=== PATIENT | female | born 1950 | race Caucasian/White ===

== ENCOUNTER → 2025-05-04 | Outpatient (CLI) | payer OTHER, MEDICARE, SELFPAY ==
--- NOTE | 2025-05-04 07:30 | XR_ITS ---
Examination: MRI thoracic spine without contrast. Date and time of exam: May 04, 2025 0714 hours INDICATIONS: Intermittent back pain post injury 2017, MRI thoracic spine April 02, 2019 thoracic syrinx cavity Technique: Multiple sagittal and axial images of the thoracic spine have been obtained. T1 weighted localizer, sagittal T2 weighted images, TR 30-50, TE 148, T1 weighted sagittal images, TR 650, TE 14, T2-weighted transverse images, TR 6770, TE 142 Findings: Adequate alignment thoracic vertebral bodies on the lateral view Mild chronic osteoporotic compressions T11-T12 with minimal posterior osteophyte formation No focal disc protrusion impinging upon the thoracic cord Syrinx cavity in the thoracic cord, sagittal image 8 AP dimension 4 mm, at the T5-T6 level measuring at least 27 mm in cephalocaudad dimension Impression: Positive for syrinx cavity as above
== END | disposition home or self-care (01) ==
PROVIDERS: PCP Physician Assistant; Referring Provider Physician Assistant; Visit Provider Physician Assistant
DX: G96.00 Cerebrospinal fluid leak, unspecified (principal)
CPT/HCPCS: 72146

== ENCOUNTER → 2025-05-13 | Outpatient (CLI) | payer OTHER, MEDICARE, SELFPAY ==
[2025-05-13 11:12] LABS: Collection Type, Urine Clean Catch
[2025-05-13 11:52] LABS: Basophils # (Auto) 0.1 Thou/mm3 (0.0-0.2); Basophils % (Auto) 1 % (0-2.5); Eosinophils # (Auto) 0.2 Thou/mm3 (0.0-0.5); Eosinophils % (Auto) 2 % (0-10); Hematocrit 43.8 % (36.0-46.0); Hemoglobin 13.9 g/dL (12.0-16.0); Immature Granulocytes Auto 0.06 Thou/mm3 (0.00-0.00); Lymphocytes # (Auto) 2.5 Thou/mm3 (1.0-4.8); Lymphocytes % (Auto) 27 % (10-50); Mean Corpuscular HGB Conc 31.7 g/dl (31.0-37.0); Mean Corpuscular Hemoglobin 28.6 pg (25.0-35.0); Mean Corpuscular Volume 90 fL (80-100); Monocytes # (Auto) 1.0 Thou/mm3 (0.0-0.8); Monocytes % (Auto) 10 % (0-12); Neutrophils # (Auto) 5.6 Thou/mm3 (1.8-7.7); Neutrophils % (Auto) 60 % (37-80); Nucleated Red Blood Cell # 0.00 Thou/mm3 (0.00-0.00); Nucleated Red Blood Cell % 0 /100 WBC (0); Platelet Count 355 Thou/mm3 (140-440); RDW Standard Deviation 40.9 fL (36.4-46.3); Red Blood Count 4.86 Miln/mm3 (4.00-5.20); White Blood Count 9.4 Thou/mm3 (3.6-11.0)
[2025-05-13 12:02] LABS: Vitamin B12 423 pg/mL (211-911); Vitamin D 25 Hydroxy Total 25.8 ng/mL (7.3-40.2)
[2025-05-13 12:10] LABS: Alanine Aminotransferase 28 U/L (10-49); Albumin, Serum 4.0 gm/dL (3.4-4.8); Albumin/Globulin Ratio 1.7 (1.2-2.2); Alkaline Phosphatase 84 U/L (46-116); Anion Gap 7 (7-16); Aspartate Amino Transferase 22 U/L (0-34); BUN/Creatinine Ratio 14 Ratio (12-20); Bilirubin,Total 1.2 mg/dL (0.3-1.2); Blood Urea Nitrogen 13 mg/dL (9-23); Calcium 9.4 mg/dL (8.3-10.6); Calcium (Corrected) 9.4 mg/dL (8.5-10.1); Carbon Dioxide 26.1 mMol/L (20.0-31.0); Cardiac Risk Estimate 5.0 RATIO (3.7-5.6); Chloride 107 mMol/L (98-107); Cholesterol 236 mg/dL (132-200); Creatinine (Component) 0.9 mg/dL (0.6-1.3); Globulin 2.3 gm/dL (2.3-3.5); Glucose 104 mg/dL (74-106); HDL Cholesterol 47 mg/dL (40-60); LDL Cholesterol,Calculated 167 mg/dL (0-130); Osmolality,Calculated 279 (275-295); Potassium 4.9 mMol/L (3.4-5.1); Sodium 140 mMol/L (136-145); Thyroid Stimulating Hormone 0.72 uIU/mL (0.55-4.78); Total Protein 6.3 gm/dL (5.7-8.2); Triglycerides 112 mg/dL (30-150); eGFR > 60 See Note
[2025-05-13 12:18] LABS: Bilirubin,Urine Negative (Negative); Blood,Urine Negative (Negative); Clarity,Urine Clear (Clear/Hazy); Color,Urine Lt-Yellow (Lt Yel-Yel); Culture Indicated,Urine Not Indicated; Glucose, Urine Negative (Negative); Ketones,Urine Negative (Negative); Leukocyte Esterase,Urine Positive (Negative); Nitrite,Urine Negative (Negative); PH,Urine 7.0 (5.0-7.0); Protein,Urine Negative (Neg - Trace); RBC,Urine 2 /hpf (0-3); Specific Gravity,Urine 1.020 (1.001-1.035); Squamous Epithelial Cell,Urine < 1 /hpf (0-5); Urobilinogen,Urine Negative mg/dL (0.0-1.0); WBC,Urine 3 /hpf (0-5)
[2025-05-13 12:23] LABS: Parathyroid Hormone Intact 129.0 pg/ml (18.5-88.0)
[2025-05-21 06:18] LABS: Prolactin* 7.3 ng/mL
== END | disposition home or self-care (01) ==
LOC: COPL 10:11
PROVIDERS: PCP Family Medicine; Referring Provider Physician Assistant; Visit Provider Physician Assistant
DX: Z00.00 Encounter for general adult medical examination without abnormal findings (principal); E78.5 Hyperlipidemia, unspecified; E55.9 Vitamin D deficiency, unspecified; E21.3 Hyperparathyroidism, unspecified; E22.1 Hyperprolactinemia
CPT/HCPCS: 36415; 80053; 80061; 81001; 82306; 82607; 83970; 84146; 84443; 85025

== ENCOUNTER → 2025-05-27 | Outpatient (CLI) | payer BC, MEDICARE, OTHER, SELFPAY ==
--- NOTE | 2025-05-27 16:00 | XR_ITS ---
Examination: Thyroid sonography complete TECHNIQUE: Grayscale sonographic images thyroid lobes Date and time: May 27, 2025 1558 hours Comparison May 11, 2023 INDICATIONS: Thyroid sonogram May 11, 2023 17 mm nodule posterior to the lower right thyroid lobe, FINDINGS: Right thyroid 5.9 cm Upper pole cyst 3 x 3 mm Lower pole nodule 4 x 4 millimeter Nodule below the right lobe of the thyroid 13 x 8 x 11 mm Left thyroid 4.5 cm Upper pole cyst 3 x 3 mm Midpole nodule 4 x 5 mm IMPRESSION: Small thyroid nodules as above 13 x 8 x 11 mm nodule separate and below the right lobe of the thyroid, consider parathyroid adenoma Consider parathyroid sestamibi nuclear medicine scan follow-up
== END | disposition home or self-care (01) ==
PROVIDERS: PCP Physician Assistant; Referring Provider Physician Assistant; Visit Provider Physician Assistant
DX: E04.2 Nontoxic multinodular goiter (principal)
CPT/HCPCS: 76536

== ENCOUNTER → 2025-06-12 | Outpatient (CLI) | payer BC, MEDICARE, OTHER, SELFPAY ==
--- NOTE | 2025-06-12 14:15 | XR_ITS ---
Examination: Bone densitometry Date and time of exam:June 12, 2025 1449 hours INDICATIONS: Menopause age 56 calcium and vitamin D 3 years, lower back fracture postmenopausal, personal history osteopenia Technique: Lumbar spine and hip total bone mineralization values of an calculated. Peak reference and age match control results have been displayed. Findings: Lumbar spine total bone mineralization is0.902 gm/cm2. This is 1.3 standard deviations below peak reference. This is 1.0 standard deviations above age-matched controls. Hip total bone mineralization is 0.861 gm/cm2 This is 0.7 standard deviations below peak reference. This is 1.0 standard deviations above age-matched controls Impression: There is osteopenia based on lumbar spine measurements. There is osteopenia based on hip measurements Lumbar mineralization is increase 11.6% compared with December 23, 2020. Hip mineralization is decreased 1.4% compared with December 23, 2020.
== END | disposition home or self-care (01) ==
LOC: CDIM 14:16
PROVIDERS: Referring Provider Physician Assistant; Visit Provider Physician Assistant
DX: M85.89 Other specified disorders of bone density and structure, multiple sites (principal)
CPT/HCPCS: 77080

== ENCOUNTER 2025-07-06 12:14 | Inpatient (IN) | payer BC, MEDICARE, OTHER, SELFPAY ==
[2025-07-06 12:15] VITALS: BMI 29.1
[2025-07-06 12:36] VITALS: BP 128/78; PULSE 65; RESP 18; TEMP 36.6; O2SAT 98
--- NOTE | 2025-07-06 12:43 | XR_ITS ---
Examination: CT abdomen with intravenous contrast CT pelvis with intravenous contrast 2-D coronal reconstructions 2-D sagittal reconstructions Date and time of exam:July 06, 2025 1510 hours INDICATIONS: Left-sided flank pain beginning 2 days ago, history on 06/27/2021 exam 4 mm right renal angiomyolipoma, 15 mm hypodense mass lower pole right kidney 4 mm lower pole left renal calculus, 14 mm splenic artery aneurysm. CTDI: vol (mGy) 24.1 DLP: (mGycm) 918 Technique: Multiple axial sections of the abdomen and pelvis have been obtained. 64 slice high-resolution scanner used. 3 mm axial sections have been obtained, post intravenous injection 60 cc [id number] 2-D sagittal, coronal reconstructions obtained. Low dose protocols were performed. One or more of the following dose reduction techniques were used; automated exposure control, adjustment of the mA and/or KV according to patient size, use of iterative reconstruction technique. Findings: Mild enlargement cardiac contour No focal liver or splenic lesions Absent gallbladder 12 mm splenic artery aneurysm No adrenal mass 7 mm posterior right renal angiomyolipoma Minimal left hydronephrosis, 3 mm proximal left ureteral calculus image 129 22 mm lower pole right renal cyst Aorta normal size No pericecal inflammatory change No bowel obstruction No diverticulitis Anteverted uterus with uterine fundal 19 mm mass Intact contracted urinary bladder Severe osteopenia with chronic osteoporotic compressions L3, L1, T12 Moderate narrowing hip joints IMPRESSION: 12 mm splenic artery aneurysm 7 mm right renal angiomyolipoma Minimal left hydronephrosis secondary to 3 mm proximal left ureteral calculus Recommend pelvic sonography to assess 19 mm uterine fundal mass
[2025-07-06 13:23] LABS: Basophils # (Auto) 0.1 Thou/mm3 (0.0-0.2); Basophils % (Auto) 0 % (0-2.5); Eosinophils # (Auto) 0.0 Thou/mm3 (0.0-0.5); Eosinophils % (Auto) 0 % (0-10); Hematocrit 44.9 % (36.0-46.0); Hemoglobin 14.8 g/dL (12.0-16.0); Immature Granulocytes Auto 0.13 Thou/mm3 (0.00-0.00); Lymphocytes # (Auto) 2.2 Thou/mm3 (1.0-4.8); Lymphocytes % (Auto) 9 % (10-50); Mean Corpuscular HGB Conc 33.0 g/dl (31.0-37.0); Mean Corpuscular Hemoglobin 29.3 pg (25.0-35.0); Mean Corpuscular Volume 89 fL (80-100); Monocytes # (Auto) 2.2 Thou/mm3 (0.0-0.8); Monocytes % (Auto) 9 % (0-12); Neutrophils # (Auto) 19.1 Thou/mm3 (1.8-7.7); Neutrophils % (Auto) 81 % (37-80); Nucleated Red Blood Cell # 0.00 Thou/mm3 (0.00-0.00); Nucleated Red Blood Cell % 0 /100 WBC (0); Platelet Count 391 Thou/mm3 (140-440); RDW Standard Deviation 41.7 fL (36.4-46.3); Red Blood Count 5.05 Miln/mm3 (4.00-5.20); White Blood Count 23.7 Thou/mm3 (3.6-11.0)
[2025-07-06] MEDS: SODIUM CHLORIDE 0.9% 1000 ML 1,000 ML 999 ML IV (13:28)
[2025-07-06 13:35] LABS: Collection Type, Urine Clean Catch
[2025-07-06 13:39] LABS: Alanine Aminotransferase 24 U/L (10-49); Albumin, Serum 4.4 gm/dL (3.4-4.8); Albumin/Globulin Ratio 1.8 (1.2-2.2); Alkaline Phosphatase 81 U/L (46-116); Amylase 29 U/L (30-118); Anion Gap 11 (7-16); Aspartate Amino Transferase 19 U/L (0-34); BUN/Creatinine Ratio 13 Ratio (12-20); Bilirubin,Total 1.7 mg/dL (0.3-1.2); Blood Urea Nitrogen 12 mg/dL (9-23); Calcium 10.7 mg/dL (8.3-10.6); Calcium (Corrected) 10.7 mg/dL (8.5-10.1); Carbon Dioxide 25.2 mMol/L (20.0-31.0); Chloride 107 mMol/L (98-107); Creatinine (Component) 0.9 mg/dL (0.6-1.3); Estimated Creatinine Clearance 58.0 mL/min (>60); Globulin 2.4 gm/dL (2.3-3.5); Glucose 113 mg/dL (74-106); Osmolality,Calculated 285 (275-295); Potassium 4.0 mMol/L (3.4-5.1); Sodium 143 mMol/L (136-145); Total Protein 6.8 gm/dL (5.7-8.2); eGFR > 60 See Note
[2025-07-06 14:04] LABS: Bilirubin,Urine Negative (Negative); Blood,Urine 3+ (Negative); Clarity,Urine Turbid (Clear/Hazy); Color,Urine Yellow (Lt Yel-Yel); Glucose, Urine Trace (Negative); Ketones,Urine Negative (Negative); Leukocyte Esterase,Urine Positive (Negative); Nitrite,Urine Negative (Negative); PH,Urine 5.5 (5.0-7.0); Protein,Urine Trace (Neg - Trace); RBC,Urine 73 /hpf (0-3); Renal Epithelial Cells,Urine < 1 /hpf (0-5); Specific Gravity,Urine 1.024 (1.001-1.035); Squamous Epithelial Cell,Urine 3 /hpf (0-5); Transitional Epi Cells,Urine 1 /hpf (0-5); Urobilinogen,Urine Negative mg/dL (0.0-1.0); WBC,Urine 44 /hpf (0-5)
[2025-07-06 14:51] VITALS: BP 119/64; PULSE 104; RESP 18; TEMP 36.6
--- NOTE | 2025-07-06 17:08 | PD.EDRME ---
Rapid Medical Screening Exam RME Arrival date/time: 07/06/25 12:14 This is a case of 75-year-old female with history of splenic aneurysm and kidney stone came in in the emergency room due to left lower side of abdomen pain radiating to the left flank with nausea and vomiting for 2 days worsening of the symptoms this patient decided to sought consult here in the emergency room CT scan of the abdomen pelvis with contrast was ordered and noted to have splenic aneurysm I discussed with my supervising physician Dr. Brush and said that she will handle the patient Chief Complaint: Abdominal Pain Time Seen by Provider: 07/06/25 12:31 Vital signs: Vital Signs Temperature 97.9 F 07/06/25 12:36 Pulse Rate 65 07/06/25 12:36 Respiratory Rate 18 07/06/25 12:36 Blood Pressure 128/78 07/06/25 12:36 Pulse Oximetry (%) 98 07/06/25 12:36 Oxygen Delivery Method Room Air 07/06/25 12:36
--- NOTE | 2025-07-06 17:29 | PD.EDABDPN ---
ED Abdominal Pain RME/HPI General Chief Complaint: Abdominal Pain Stated complaint: LEFT BACK/ABD PAIN, VOMITING, DIARRHEA X3D Time seen by provider: 07/06/25 12:31 Arrival date/time: 07/06/25 12:14 Limitations: no limitations RME / HPI RME / HPI narrative: 07/06/25 12:14 This is a case of 75-year-old female with history of splenic aneurysm and kidney stone came in in the emergency room due to left lower side of abdomen pain radiating to the left flank with nausea and vomiting for 2 days worsening of the symptoms this patient decided to sought consult here in the emergency room CT scan of the abdomen pelvis with contrast was ordered and noted to have splenic aneurysm I discussed with my supervising physician Dr. Brush and said that she will handle the patient DR. SARITHA ESPINOZA ED EVALUATION 75 year old female with history of known splenic aneurysm (followed by Dr. Tompkins which she last saw this summer) , s/p cholecystectomy presents to the ED for evaluation of abdominal pain beginning 2 days ago. Described as aching in sensation that is located diffusely. Accompanied by nausea, vomiting, and diarrhea. States she has had positive sick contacts with family members who recently traveled and are sick with similar GI symptoms. Patient mentioned in the past, she had been told if she has abdominal pain, to come to the ED for assessment. Denies fevers, chills, chest pain, cough, shortness of breath, or urinary symptoms. Patient additionally reports she has a uterine mass. Is followed by donation specialist, had an outpatient ultrasound performed with follow up appointment scheduled for tomorrow. Allergy to penicillin though no reaction of her throat closing or anaphylaxis. Related Data Home Medications ?Medication ?Instructions ?Recorded ?Confirmed montelukast 10 mg tablet 10 mg PO HS #0 tabs 05/09/17 07/06/25 (Singulair) omeprazole 40 mg capsule,delayed 40 mg PO QDAY ##0 05/09/17 07/06/25 release ezetimibe 10 mg tablet 10 mg PO QDAY 10/05/23 07/06/25 sumatriptan succinate 100 mg tablet 100 mg PO Q2H PRN Migraine 10/05/23 07/06/25 Previous Rx's ?Medication ?Instructions ?Recorded ondansetron 4 mg disintegrating 4 mg PO Q8H PRN nausea and 07/08/25 tablet vomiting 7 days #21 tabs tamsulosin 0.4 mg capsule 0.4 mg PO QDAY 30 days #30 caps 07/08/25 Allergies Allergy/AdvReac Type Severity Reaction Status Date / Time morphine Allergy Intermediate Vomiting Verified 07/06/25 12:17 codeine Allergy Unknown Verified 07/06/25 12:17 Penicillins Allergy Unknown Verified 07/06/25 12:17 Review of Systems Review of Systems Systems Reviewed: All systems reviewed, normal except as documented Past Medical History Past Medical History NEUROLOGIC: Positive Neurological Disorders and Migraine CARDIAC: Positive Angina, Hypercholesterolemia and Edema GASTROINTESTINAL: Positive Gastrointestinal Disorders, Gastroesophageal Reflux Disease and Obesity GENITOURINARY: Positive Kidney Stones REPRODUCTIVE: Positive Previous Pregnancies MUSCULOSKELETAL: Positive Musculoskeletal Disorders, Fractures (MVCA) and Degenerative Joint Disease OTHER HISTORY: Positive Chicken Pox Family History FAMILY HISTORY: Positive Family Respiratory Disorders (MOTHER PULM FIBROSIS), Family Cardiac Disorders (MOTHER CHF), Family Cancer (FATHER PROSTATE) and Family Surgery (FATHER BACK, MOTHER CHOLECYSTECTOMY) Surgical History SURGICAL: Positive Tonsillectomy, Abdominal Surgery, Mastectomy, Lumpectomy and Section; Negative Cardiac Surgery, Open Heart Surgery, Coronary Artery Bypass Graft, Valve Replacement, Vascular Surgery, Coronary Stent, Cardiac Catheterization, Pacemaker, Angiogram, Auto Implanted Cardiovert Defib, Carotid Endarterectomy, Endocrine Surgery, Thyroidectomy, Ear Surgery, Tympanostomy Tube, Eye Surgery, Nose Surgery, Oral Surgery, Adenoidectomy, Cochlear Implant, Corneal Transplant, Throat Surgery, Tracheostomy, Gastric Bypass Surgery, Gastrostomy, Bowel Surgery, Nephrectomy, Joint Replacement, Amputation, Open Reduction Internal Fixation, Arthroscopy, Neurologic Surgery or Brain Shunt Social History SMOKING STATUS: Never smoker SECOND HAND EXPOSURE: Yes 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[employer] ED Exam General Limitations: Present no limitations General appearance: Present alert and in no apparent distress Head Head exam: Present atraumatic, normocephalic and normal inspection Eye Eye exam: Present normal appearance, PERRL and EOMI ENT ENT exam: Present normal exam, normal oropharynx and mucous membranes moist Neck Neck exam: Present normal inspection, full ROM and trachea midline Chest Chest inspection: Present normal inspection and symmetric chest wall rise Respiratory Respiratory exam: Present normal lung sounds bilaterally Cardiovascular Cardiovascular exam: Present regular rate, normal rhythm and normal heart sounds Abdominal Exam Abdominal exam: Present soft, tenderness, normal bowel sounds and other (Bilateral flank pain); Absent distention, guarding or rebound Extremities Exam Extremities exam: Present normal inspection and full ROM Back Exam Back exam: Present other (Bilateral flank tenderness to palpation) Neurological Exam Neurological exam: Present alert, oriented X3 and CN II-XII intact Psychiatric Psychiatric exam: Present normal affect and normal mood Skin Skin exam: Present warm, dry, intact and normal color Course Quality Measures none Orders Category Date Time Status Bedside COVID-19 Antigen Test NOW Care 07/06/25 12:47 Completed Bedside Influenza A&B Antigen Test NOW Care 07/06/25 12:47 Completed COVID-19 Screening Questionnaire NOW Care 07/06/25 18:[address] Screening NOW Care 07/06/25 12:43 Completed Decision to Admit X1 Care 07/06/25 18:45 Completed Miscellaneous Nursing Order NOW Care 07/06/25 18:52 Completed Consult to Urology Stat Cons 07/06/25 18:[address] abdomen pelvis w con Stat Exams 07/06/25 12:43 Completed XR chest 1V Stat Exams 07/06/25 18:15 Completed Amylase Stat Lab 07/06/25 12:56 Completed CBC Stat Lab 07/06/25 12:56 Completed Comprehensive Metabolic Panel Stat Lab 07/06/25 12:56 Completed Urinalysis Stat Lab 07/06/25 13:26 Completed Ondansetron Inj [Zofran Inj] Med 07/06/25 12:43 Discontinued 4 mg IVP X1 ONE Ondansetron Odt [Zofran Odt] Med 07/06/25 16:58 Discontinued 4 mg PO X1 ONE Sodium Chloride 0.9% 1000 ml [Ns] 1,000 ml Med 07/06/25 12:43 Discontinued IV 999 mls/hr cefTRIAXone/D5w 1gm IV premix [Rocephin/D5w 1gm IV Med 07/06/25 18:03 Discontinued premix] 1 gm in 50 ml IV STAT oxyCODONE/APAP 5/325 [Percocet 5/325] Med 07/06/25 18:04 Discontinued 1 tab PO X1 ONE Vital Signs Vital signs: Vital Signs Temperature 97.9 F 07/06/25 12:36 Pulse Rate 65 07/06/25 12:36 Respiratory Rate 18 07/06/25 12:36 Blood Pressure 128/78 07/06/25 12:36 Pulse Oximetry (%) 98 07/06/25 12:36 Oxygen Delivery Method Room Air 07/06/25 12:36 Pulse ox is 98% on room air which is adequate. Abdominal Pain [facility] Narrative MDM Narrative:: Patient is a 75-year-old female with history of splenic aneurysm is in emerged part concerns for abdominal pain. Prior provider evaluated patient. Ordered labs, CT abdomen pelvis with contrast. Labs with evidence of leukocytosis 23.7, left shift 81%. Hemoglobin 14.8. No acute electrolyte abnormality. No acute electrolyte abnormality. Patient T. bili is 1.7. Previously normal. No other transaminitis. Urinalysis patient with hematuria, 73 red blood cells, 44 white blood cells. Will send urine for culture. CT abdomen pelvis with contrast notable for a 12 mm splenic artery aneurysm, 7 mm posterior right renal angiomyolipoma, minimal left-sided hydronephrosis, 3 mm proximal left ureteral calculus. Patient has a 22 mm lower pole right renal cyst. Patient has osteopenia with chronic osteoporotic compression fractures of L3 L1 and T12. Patient also has a uterine fundal mass. In comparison to the CT performed on June 26, 2021 renal aneurysm appears stable. Splenic l aneurysm 14 mm. At the time patient also was diagnosed with a 4 mm upper pole right renal angiomyolipoma as well as a 4 mm lower pole of the left renal calculus. Given patient's leukocytosis, and possible urinary tract infection, consulted hospitalist for admission, and possible nephrostomy tube given the hydronephrosis and possible infected kidney stone. Discussed case with hospitalist Dr. Wallace, request that we consult urology. Patient signed out to Dr. Gasca pending urology consult and call for admission Patient data External records reviewed:: [facility] previous records Clinical information provided by:: patient and family Social determinants that could affect healthcare access:: none Patient has the following chronic illnesses:: See MDM How is presenting disease/condition affected by chronic disease/condition?: exacerbated by Evaluation data The following diagnostics were reviewed and interpreted by me:: lab results and radiology exam(s) Lab and/or radiology exams considered but not ordered:: None Interpretation Summary: See MDM Medications / Prescriptions Medications or Prescriptions considered but not ordered:: None Medication administrations:: Medication Administration History Discontinued Medications Acetaminophen (Acetaminophen 325 Mg Tablet) 650 mg PO Q6H PRN PRN Reason: Fever >101.5 Stop: 08/05/25 20:54 Acetaminophen (Acetaminophen 325 Mg Tablet) 650 mg PO Q6H PRN PRN Reason: Fever >101.5 Stop: 08/05/25 20:54 Last Admin: 07/07/25 12:16 Dose: 650 mg Documented By: PRASANTH Acetaminophen (Acetaminophen 325 Mg Tablet) 650 mg PO Q6H PRN PRN Reason: Fever >100.4 Stop: 08/05/25 20:54 Last Admin: 07/07/25 18:21 Dose: 650 mg Documented By: DANYEL Hydrocodone Bitart/Acetaminophen (Hydrocodone/Apap 10/325 Tab) 1 tab PO Q4HR PRN PRN Reason: Pain Scale 7-10 (Severe) Stop: 07/11/25 21:16 Sodium Chloride (Ns) 1,000 mls @ 999 mls/hr IV .Q1H1M ONE Stop: 07/06/25 13:43 Last Infusion: 07/06/25 14:44 Dose: Infused Documented By: Admin: 07/06/25 13:28 Dose: 999 mls/hr Documented By: MILTON Ceftriaxone Sodium/Dextrose (Rocephin/D5w 1gm Iv Premix) 1 gm in 50 mls @ 100 mls/hr IV STAT STA Stop: 07/06/25 18:32 Last Infusion: 07/06/25 19:08 Dose: Infused Documented By: Admin: 07/06/25 18:27 Dose: 100 mls/hr Documented By: BERTA Ceftriaxone Sodium/Dextrose (Rocephin/D5w 1gm Iv Premix) 1 gm in 50 mls @ 100 mls/hr IV QDAY@1800 CRISTÓBAL Stop: 07/14/25 17:59 Last Admin: 07/07/25 17:42 Dose: 100 mls/hr Documented By: DANYEL Sodium Chloride (Ns) 1,000 mls @ 120 mls/hr IV .Q8H20M ONE Stop: 07/07/25 18:54 Last Admin: 07/07/25 11:35 Dose: 120 mls/hr Documented By: DANYEL Montelukast Sodium (Montelukast Sodium 10 Mg Tablet) 10 mg PO HS CRISTÓBAL Stop: 08/06/25 20:59 Last Admin: 07/07/25 20:29 Dose: 10 mg Documented By: WALETR Ondansetron HCl (Ondansetron Inj 2 Mg/Ml Inj 2 Ml) 4 mg IVP X1 ONE; Protocol Stop: 07/06/25 12:44 Last Admin: 07/06/25 18:44 Dose: Not Given Documented By: BERTA Non-Admin Reason: Cancelled by Provider Ondansetron HCl (Ondansetron Odt 4 Mg Tabrap) 4 mg PO X1 ONE; Protocol Stop: 07/06/25 16:59 Last Admin: 07/06/25 18:21 Dose: 4 mg Documented By: MILTON Ondansetron HCl (Ondansetron Inj 2 Mg/Ml Inj 2 Ml) 4 mg IVP Q6H PRN; Protocol PRN Reason: NAUSEA OR VOMITING Stop: 08/05/25 20:54 Oxycodone/Acetaminophen (Oxycodone/Apap 5/325 Tablet) 1 tab PO X1 ONE Stop: 07/06/25 18:05 Last Admin: 07/06/25 18:23 Dose: 1 tab Documented By: BERTA Oxycodone/Acetaminophen (Oxycodone/Apap 5/325 Tablet) 1 tab PO Q6H PRN PRN Reason: Pain Scale 4-6 (Moderate) Stop: 07/11/25 21:16 Potassium Chloride (Potassium Chloride 20 Meq Tabcr) 40 meq PO X1 ONE Stop: 07/08/25 11:04 Last Admin: 07/08/25 12:27 Dose: 40 meq Documented By: jd Sumatriptan Succinate (Sumatriptan 25 Mg Tablet) 100 mg PO Q2H PRN PRN Reason: Migraine Stop: 08/05/25 23:39 Last Admin: 07/08/25 09:32 Dose: 100 mg Documented By: jd Admin: 07/07/25 00:11 Dose: 100 mg Documented By: WALTER Tamsulosin HCl (Tamsulosin Hcl 0.4 Mg Capsule) 0.4 mg PO QDAY CRISTÓBAL Stop: 08/06/25 10:44 Last Admin: 07/08/25 09:32 Dose: 0.4 mg Documented By: jd Admin: 07/07/25 11:34 Dose: 0.4 mg Documented By: DANYEL See above Consultations Consultation(s) initiated? (list below): Yes Consultation #1 (Physician, Specialty, Details): See MDM Diagnosis Differential diagnosis abdominal pain: abdominal pain, diverticulitis, gastroenteritis and other (See MDM) Most likely diagnosis given after review of the tests above:: Nausea Diarrhea UTI Admission Indicated Admission indicated?: indicated Admission Request Was there a request for admission?: Yes Admission Attestation Admission request attestation: Discussed case with Hospitalist service regarding admission. Discussed patients ED course, exam findings, labs, and radiology results. The Hospitalist [agrees] to accept the patient for admission. Disposition Plan Disposition Plan: Admit Discharge Plan Plan Patient Disposition: Admit Acute Care w/in Hospital Patient condition on transfer: Stable Problem List Clinical Impression: Nausea, Diarrhea, Urinary tract infection Patient/Caregiver Discharge Instructions Other Activity Instructions:: Continue taking antibiotic as prescribed for your UTI. Take pain medication and antinausea medication as needed. Start taking tamsulosin as management for kidney stones. Resume previous medications. Follow up with PCP in 1-2 weeks.
--- NOTE | 2025-07-06 18:15 | XR_ITS ---
Examination: AP chest single view Technique one AP portable upright chest single view Date and time: July 06, 2025, 1831 hrs., Comparison April 20, 2021 Chest pain shortness of breath today. Findings: Suspicious for early heart failure. Mild enlargement cardiac contour. Prominent vascular congestion. There appears to be early septal edema at the lung bases Prominent osteopenia Impression: Early heart failure
--- NOTE | 2025-07-06 18:16 | EVENTNT_ITS ---
Documentation for date of: 07/06/25 Event Note Event Note: Received call from ED around 6:25pm re: leukocytosis likely due to UTI. Patient has a long standing history of recurrent renal calculi. CT A/P shows LT hydronephrosis, and LT renal calculus. Patient is afebrile. UA showed mildly elevated WBC but no bacteria. She does not have any respiratory symptoms, therefore a CXR was not ordered. ED was requested for a CXR, call to Urologist Dr Lawson re: clearance for admission given history of recurrent nephrolithiasis. Patient may need nephrostomy tube with close urology monitoring. IM hospitalist night team to re-evaluate patient for admission once the above requests completed. ED expected to call back. Plan of care discussed with attending Quincy Ramos M.D. PGY3 Disclaimer: Minor errors in renderer may be present as this note was dict ated using voice recognition software.
[2025-07-06] MEDS: ONDANSETRON ODT 4 MG TABRAP PO (18:21)
[2025-07-06] MEDS: cefTRIAXone/D5w 1gm IV premix 1 GM/50 ML BAG IV (18:27)
--- NOTE | 2025-07-06 18:45 | EDNOTE_ITS ---
Emergency Room Addendum Addendum Narrative: Signout received from previous shift ED physician Dr. Villela. Past medical, surgical, social, family history reviewed vitals home medications reviewed, will resume care of the patient at this time. Please refer to emergency department record of history and exam from initial visit Mr. Piña is a 75-year-old female with history of stable splenic aneurysm follows Dr. Chiu in [place], status post cholecystectomy who presented to [facility] ED 07/06/2025 with a chief complaint of abdominal pain. Patient's workup remarkable for urinary tract infection, CT abdomen pelvis showed 12 mm stable splenic artery aneurysm, 7 mm posterior right renal angiomyolipoma with minimal left-sided hydronephrosis, 3 mm proximal left ureteral calculus. Also had a uterine mass noted on CT however patient is established with gynecology outpatient. Request for admission made by Dr. Villela to the hospitalist team however hospitalist team recommended urology consult. 1840- Case was discussed with urologist Dr. Lawson, lab findings stable kidney function BUN 12 creatinine 0.9 and GFR greater than [address] Lawson recommends admitting patient and he is requesting that patient's clinicals and facesheet be sent over to his office. He reported that he will evaluate and follow-up with patient for the hospital course. 1914- Hospitalist team updated,Patient accepted for admission by hospitalist team. Case discussed with Attending Physician Dr. Teofilo Gasca MD Internal Medicine PGY-2 Disclaimer: This note was dictated by speech recognition. Minor errors in agricultural extension educator may be present due to voice recognition software.
[2025-07-06 19:01] VITALS: BP 121/57; PULSE 65; RESP 18; TEMP 36.6; O2SAT 96
[2025-07-06 20:44] VITALS: BP 104/50; PULSE 60; RESP 20; TEMP 36.8; O2SAT 95
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
[2025-07-06 21:50] VITALS: BP 138/70; PULSE 64; RESP 16; TEMP 36.5; O2SAT 94
--- NOTE | 2025-07-06 23:40 | PC.NURSE ---
Pt is requesting migraine meds, Dr. Palacio was made aware, med rec is done MD will restart home meds.
[2025-07-07] VITALS: BP 119/57; PULSE 56; RESP 16; TEMP 36.1; O2SAT 94
[2025-07-07 04:00] VITALS: BP 130/65; PULSE 65; RESP 18; TEMP 36.1; O2SAT 94
[2025-07-07 05:46] LABS: Basophils # (Auto) 0.1 Thou/mm3 (0.0-0.2); Basophils % (Auto) 1 % (0-2.5); Eosinophils # (Auto) 0.1 Thou/mm3 (0.0-0.5); Eosinophils % (Auto) 0 % (0-10); Hematocrit 40.0 % (36.0-46.0); Hemoglobin 13.0 g/dL (12.0-16.0); Immature Granulocytes Auto 0.04 Thou/mm3 (0.00-0.00); Lymphocytes # (Auto) 2.6 Thou/mm3 (1.0-4.8); Lymphocytes % (Auto) 22 % (10-50); Mean Corpuscular HGB Conc 32.5 g/dl (31.0-37.0); Mean Corpuscular Hemoglobin 29.2 pg (25.0-35.0); Mean Corpuscular Volume 90 fL (80-100); Monocytes # (Auto) 1.1 Thou/mm3 (0.0-0.8); Monocytes % (Auto) 9 % (0-12); Neutrophils # (Auto) 7.8 Thou/mm3 (1.8-7.7); Neutrophils % (Auto) 67 % (37-80); Nucleated Red Blood Cell # 0.00 Thou/mm3 (0.00-0.00); Nucleated Red Blood Cell % 0 /100 WBC (0); Platelet Count 248 Thou/mm3 (140-440); RDW Standard Deviation 41.7 fL (36.4-46.3); Red Blood Count 4.45 Miln/mm3 (4.00-5.20); White Blood Count 11.6 Thou/mm3 (3.6-11.0)
[2025-07-07 06:15] LABS: Alanine Aminotransferase 17 U/L (10-49); Albumin, Serum 3.8 gm/dL (3.4-4.8); Albumin/Globulin Ratio 2.0 (1.2-2.2); Alkaline Phosphatase 67 U/L (46-116); Anion Gap 7 (7-16); Aspartate Amino Transferase 15 U/L (0-34); BUN/Creatinine Ratio 15 Ratio (12-20); Bilirubin,Total 1.7 mg/dL (0.3-1.2); Blood Urea Nitrogen 12 mg/dL (9-23); Calcium 9.8 mg/dL (8.3-10.6); Calcium (Corrected) 10.0 mg/dL (8.5-10.1); Carbon Dioxide 26.8 mMol/L (20.0-31.0); Chloride 108 mMol/L (98-107); Creatinine (Component) 0.8 mg/dL (0.6-1.3); Estimated Creatinine Clearance 65.8 mL/min (>60); Globulin 1.9 gm/dL (2.3-3.5); Glucose 98 mg/dL (74-106); Magnesium 1.9 mg/dL (1.6-2.6); Osmolality,Calculated 282 (275-295); Phosphorous 2.8 mg/dL (2.4-5.1); Potassium 4.0 mMol/L (3.4-5.1); Sodium 142 mMol/L (136-145); Total Protein 5.7 gm/dL (5.7-8.2); eGFR > 60 See Note
[2025-07-07 07:34] VITALS: BP 137/69; PULSE 85; RESP 18; TEMP 36.9; O2SAT 97
--- NOTE | 2025-07-07 09:48 | ESPR_ITS ---
<Statement entered by Jhonny Silva MD - 07/09/25 17:42> I reviewed above note and agree with findings and plans. I have also personally examined the patient with medicine team and went over assessment and plan with medical team including design intern and resident physician. <Statement entered by Nishi Richardson MD - 07/08/25 13:23> I discussed with and supervised the design intern physician who took care of this patient. I personally saw and examined the patient and discussed the assessment and plan with the entire medicine team, including my attending Dr. Silva, I agree with most of the assessment and plan as documented below Nishi Richardson M.D. PGY-3 Disclaimer: Despite multiple revisions, due to the dictation software being used, the document bellow may not be free of grammatical errors including phonetic/typographic errors. However, this does not deter from our commitment to providing health care in the patient's best interest in mind. Documentation for date of: 07/07/25 Subjective Subjective Interval history: Patient examined at bedside, admitted overnight. In short, this is a75 yof with a h/o splenic artery aneurysm, prior renal stone, history of lap valerio who presented with abdominal pain, nausea, and vomiting that started 4 days ago. It was waxing and waning until it eventually got bad enough that she went to the ED. In the ED, she was found to have a UTI and CT demonstrating a 3mm ureteral stone with mild left hydronephrosis. Dr. Aguilar with urololgy recommended admission for formal urological evaluation. Today, almost her symptoms have resolved. She denies nausea, vomiting, diarrhea, and abdominal pain. Unfortunately, Dr. Aguilar was unable to make it today, recommended NPO at midnight in case surgery was required. Of note, a 7 mm angiomyolipoma was found on the right kidney. 12 mm splenic artery aneurysm. Anteverted uterus with uterine fundal 19 mm mass. Patient currently stable today. mIVF Tamsulosin Ceftriaxone Exam Vital Signs Temp Pulse Resp BP Pulse Ox O2 Del Method FiO2 98.5 F 85 18 137/69 H 97 Room Air 100 07/07/25 07:34 07/07/25 07:34 07/07/25 07:34 07/07/25 07:34 07/07/25 07:34 07/07/25 07:34 07/06/25 14:51 Narrative Exam General: Patient appears younger than stated age, no acute distress, sitting comfortably in bed. HEENT: Mucosa moist. Pupils are equal and reactive to light bilaterally. Good dentition, no oropharyngeal lesions. Cardiovascular: Normal S1 and S2. Regular rate and rhythm. No murmur appreciated Respiratory: Clear to auscultation bilaterally without wheezes or crackles. Abdomen: Soft, nontender, not distended, Skin: Dry, no rashes or bruising, multiple Musculoskeletal: No gross injuries. Able to move all 4 extremities. Non edematous lower extremities. Neuro: Alert and oriented x3. No focal neuro deficits. Psych: Normal affect and mood Objective Labs 07/07/25 05:25 07/07/25 05:25 Labs: Laboratory Results - last 24 hr 07/06/25 07/06/25 07/07/25 12:56 13:26 05:25 WBC 23.7 H 11.6 H D RBC 5.05 4.45 Hgb 14.8 13.0 Hct 44.9 40.0 MCV 89 90 MCH 29.3 29.2 MCHC 33.0 32.5 RDW Std Deviation 41.7 41.7 Plt Count 391 248 D Neut % (Auto) 81 H 67 Lymph % (Auto) 9 L 22 [place] % (Auto) 9 9 Eos % (Auto) 0 0 Baso % (Auto) 0 1 Neut # (Auto) 19.1 H 7.8 H Lymph # (Auto) 2.2 2.6 [place] # (Auto) 2.2 H 1.1 H Eos # (Auto) 0.0 0.1 Baso # (Auto) 0.1 0.1 Immature Gran # (Auto) 0.13 H 0.04 H Absolute Nucleated RBC 0.00 0.00 Immature Gran % 1 H 0 Nucleated RBC % 0 0 Sodium 143 142 Potassium 4.0 4.0 Chloride 107 108 H Carbon Dioxide 25.2 26.8 Anion Gap 11 7 BUN 12 12 Creatinine 0.9 0.8 Estim Creat Clear Calc 58.0 L 65.8 eGFR > 60 > 60 BUN/Creatinine Ratio 13 15 Glucose 113 H 98 Calculated Osmolality 285 282 Calcium 10.7 H 9.8 Corrected Calcium 10.7 H 10.0 Phosphorus 2.8 Magnesium 1.9 Total Bilirubin 1.7 H 1.7 H AST 19 15 ALT 24 17 Alkaline Phosphatase 81 67 Total Protein 6.8 5.7 Albumin 4.4 3.8 D Globulin 2.4 1.9 L Albumin/Globulin Ratio 1.8 2.0 Amylase 29 L Ur Collection Type Clean Catch Urine Color Yellow Urine Clarity Turbid A Urine pH 5.5 Ur Specific [place] 1.024 Urine Protein Trace Urine Glucose (UA) Trace Urine Ketones Negative Urine Blood 3+ A Urine Nitrite Negative Urine Bilirubin Negative Urine Urobilinogen (Auto) Negative Ur Leukocyte Esterase Positive Urine RBC 73 H Urine WBC 44 H Ur Squamous Epith Cells 3 Ur Transition Epith Cell 1 Ur Renal Epithelial Cell < 1 Urine Bacteria None Quality Measures Quality Measures none Advance care planning discussed with:: patient Assessment & Plan Assessment Current Active Medications: Generic Name Dose Route Start Last Admin Trade Name Freq PRN Reason Stop Dose Admin Acetaminophen 650 mg 07/06/25 21:17 Acetaminophen 325 Mg Tablet PO 08/05/25 20:54 Q6H PRN Fever >101.5 Hydrocodone Bitart/Acetaminophen 1 tab 07/06/25 21:17 Hydrocodone/Apap 10/325 Tab PO 07/11/25 21:16 Q4HR PRN Pain Scale 7-10 (Severe) Ceftriaxone Sodium/Dextrose 1 gm in 50 mls @ 100 mls/hr 07/07/25 18:00 Rocephin/D5w 1gm Iv Premix IV 07/14/25 17:59 QDAY@1800 CRISTÓBAL Montelukast Sodium 10 mg 07/07/25 21:00 Montelukast Sodium 10 Mg Tablet PO 08/06/25 20:59 HS CRISTÓBAL Ondansetron HCl 4 mg 07/06/25 20:55 Ondansetron Inj 2 Mg/Ml Inj 2 Ml IVP 08/05/25 20:54 Q6H PRN NAUSEA OR VOMITING Protocol Oxycodone/Acetaminophen 1 tab 07/06/25 21:17 Oxycodone/Apap 5/325 Tablet PO 07/11/25 21:16 Q6H PRN Pain Scale 4-6 (Moderate) Sumatriptan Succinate 100 mg 07/06/25 23:40 07/07/25 00:11 Sumatriptan 25 Mg Tablet PO 08/05/25 23:39 100 mg Q2H PRN Administration Migraine Plan Patient is a 75 year-old female with past medical history of migraine, splenic aneurysm, nephrolithiasis, s/p cholecystectomy (2020) who presented to the ED on 07/06/2025 with chief complaint of abdominal pain, nausea and vomiting. Admitted for UTI evaluation and and management. #Complicated UTI #Mild Left Hydronephrosis 11/16 #Left Ureteral Stone Patient presenting with symptoms consistent with renal colic, UA + for WBC in the 40s and leuk esterase. CT demonstrating a 3mm ureteral stone with mild left hydronephrosis. Overall, patient's pain appears to be improving, may have passed the stone already at this point. -Consult to Urology, appreciate recommendations. NPO midnight if procedure necessary. -Ceftriaxone (07/06- -Tamsulosin -mIVF -zofran for nausea -[place] for pain control #Splenic Artery Aneurysm Hx splenic aneurysm-followed by Dr. Tompkins in [place], last seen this summer. Previous CTA 06/26/2021 shows 14mm splenic artery aneurysm, now reduce 12 mm. - Continue with outpatient follow-up #HX of migraine On medication sumatriptan succinate 100 mg. Currently well-controlled - Resumed home medication #Hx HLD - Resume home ezetimibe 10 mg #Hx Allergic rhinitis - Resume home Singulair 10mg #Uterine fundal 19 mm mass Incidental finding on CT. Anteverted uterus with uterine fundal 19 mm mass. Patient is aware of the mass. Follow-up outpatient with scrap handler, Dr Oviedo. Health Maintenance: DVT prophylaxis: SCDs Diet: Npo midnight [place]: No Lines: PIV CODE STATUS: Full code Disposition: Pending urology recommendations. Patient's plan and care discussed with my attending, Dr. Silva and my senior Dr. Richardson. Sea Cheng, PGY-1 ([facility] Resident)
[2025-07-07] MEDS: TAMSULOSIN HCL 0.4 MG CAPSULE PO (11:34)
[2025-07-07] MEDS: SODIUM CHLORIDE 0.9% 1000 ML 1,000 ML 120 ML IV (11:35)
[2025-07-07 12:00] VITALS: BP 122/63; PULSE 70; RESP 16; TEMP 36.6; O2SAT 96
[2025-07-07] MEDS: ACETAMINOPHEN 325 MG TABLET 650 MG PO ×2 (12:16→18:21)
[2025-07-07 15:59] VITALS: BP 110/58; PULSE 62; RESP 17; TEMP 36.6; O2SAT 92
[2025-07-07] MEDS: cefTRIAXone/D5w 1gm IV premix 1 GM/50 ML BAG IV (17:42)
--- NOTE | 2025-07-07 18:09 | ESPR_ITS ---
RE: NICOL STEPHENS : 1950 DATE OF SERVICE: 07/07/2025 CHIEF COMPLAINT: 1. Severe left flank pain with nausea and vomiting. 2. History of stone disease in the past. 3. Splenic aneurysm. HISTORY OF PRESENT ILLNESS: This is a 75-year-old female. She has significant past medical history of migraine, splenic aneurysm, nephrolithiasis, and status post cholecystectomy in 2020. She came to the emergency room with the chief complaint of left flank pain with nausea and vomiting. No high fever. No gross hematuria. The patient had past medical history of stone disease. She has passed a stone before. The patient also has occasional minimal chest pressure and shortness of breath, however, denies orthopnea or chest pain. Denies gross hematuria. The patient also has a history of uterine mass, for which she is under care of filler in. Past medical history, family history, review of the system, personal history, please refer to patient's history form dated 07/06/2025, it is in HPI, in EMR. PAST MEDICAL HISTORY: As mentioned above. FAMILY HISTORY: Diabetes and hypertension. SURGICAL HISTORY: Cholecystectomy, hemorrhoid surgery, and . SOCIAL HISTORY: Denies history of smoking. Denies current alcohol use. PHYSICAL EXAMINATION: General: Condition is satisfactory. Orientation x3. The patient is not in acute distress HEENT: Normocephalic and atraumatic. Eyes: No anemia or jaundice. Neck: Supple. Trachea is central. Thyroid is not enlarged. Extremities: Revealed no edema, cyanosis or clubbing. Vital Signs: Stable. They are in HPI, in EMR. Chest: Symmetrical. Heart: Regular rate and rhythm. Abdomen: No masses. Liver, spleen, and kidney not palpable. No CVA tenderness. VARIOUS LABORATORIES: WBC is 23.7, hemoglobin is 14.8, and HCT is 44.9. Serum sodium is 143, BUN is 12, and creatinine is 1.1. She had CAT scan of the abdomen and pelvis done. This is reviewed by me. This revealed 3 mm stone, proximal ureter with minimal hydronephrosis. PLAN: 1. I discussed various options with the patient. There is 3 mm stone with minimal hydronephrosis. Majority of the time, the stone can pass. At this time, patient is not having any pain, nausea, vomiting or fever. She can be discharged home on pain medication and Flomax. 2. I explained to patient if she is having severe pain in left flank with nausea and vomiting, then she has the option of cysto, retrograde ureteroscopy, possible laser stone fragmentation, stone basketing, and stent placement. Procedure and complications of which are discussed with patient in detail. The patient elected to be observed. 3. Drink enough fluid, so that she has urinary output of 2400 mL in 24 hours. 4. Tamsulosin 0.4 mg p.o. daily. 5. Strain all the urine. I also explained to patient if she has another episode of left flank pain, severe with nausea, vomiting, high fever, and gross hematuria, then it is emergency. She has to come to the emergency room KALAYNI. All above issues were discussed with patient in detail. Questions were answered to her satisfaction. She verbalized understanding. If she is discharged home, I will see her in the office in 4 months' time. DT: 16:25:42 TT: 18:07:00 Ref: - TID: [id number] [email or web address]
[2025-07-07 20:00] VITALS: BP 120/60; PULSE 63; RESP 20; TEMP 36.4; O2SAT 95
[2025-07-07] MEDS: MONTELUKAST SODIUM 10 MG TABLET PO (20:29)
[2025-07-08] VITALS: BP 128/59; PULSE 61; RESP 18; TEMP 36.7; O2SAT 94
[2025-07-08 04:00] VITALS: PULSE 64; RESP 18; TEMP 37.2; O2SAT 92
[2025-07-08 05:41] LABS: Basophils # (Auto) 0.1 Thou/mm3 (0.0-0.2); Basophils % (Auto) 1 % (0-2.5); Eosinophils # (Auto) 0.2 Thou/mm3 (0.0-0.5); Eosinophils % (Auto) 2 % (0-10); Hematocrit 39.5 % (36.0-46.0); Hemoglobin 12.9 g/dL (12.0-16.0); Immature Granulocytes Auto 0.03 Thou/mm3 (0.00-0.00); Lymphocytes # (Auto) 2.7 Thou/mm3 (1.0-4.8); Lymphocytes % (Auto) 30 % (10-50); Mean Corpuscular HGB Conc 32.7 g/dl (31.0-37.0); Mean Corpuscular Hemoglobin 29.6 pg (25.0-35.0); Mean Corpuscular Volume 91 fL (80-100); Monocytes # (Auto) 1.0 Thou/mm3 (0.0-0.8); Monocytes % (Auto) 11 % (0-12); Neutrophils # (Auto) 5.2 Thou/mm3 (1.8-7.7); Neutrophils % (Auto) 56 % (37-80); Nucleated Red Blood Cell # 0.00 Thou/mm3 (0.00-0.00); Nucleated Red Blood Cell % 0 /100 WBC (0); Platelet Count 283 Thou/mm3 (140-440); RDW Standard Deviation 41.7 fL (36.4-46.3); Red Blood Count 4.36 Miln/mm3 (4.00-5.20); White Blood Count 9.2 Thou/mm3 (3.6-11.0)
[2025-07-08 06:30] LABS: Alanine Aminotransferase 18 U/L (10-49); Albumin, Serum 3.5 gm/dL (3.4-4.8); Albumin/Globulin Ratio 1.9 (1.2-2.2); Alkaline Phosphatase 63 U/L (46-116); Anion Gap 7 (7-16); Aspartate Amino Transferase 18 U/L (0-34); BUN/Creatinine Ratio 16 Ratio (12-20); Bilirubin,Total 1.2 mg/dL (0.3-1.2); Blood Urea Nitrogen 11 mg/dL (9-23); Calcium 9.5 mg/dL (8.3-10.6); Calcium (Corrected) 9.9 mg/dL (8.5-10.1); Carbon Dioxide 26.5 mMol/L (20.0-31.0); Chloride 110 mMol/L (98-107); Creatinine (Component) 0.7 mg/dL (0.6-1.3); Estimated Creatinine Clearance 75.2 mL/min (>60); Globulin 1.8 gm/dL (2.3-3.5); Glucose 91 mg/dL (74-106); Magnesium 1.9 mg/dL (1.6-2.6); Osmolality,Calculated 284 (275-295); Phosphorous 2.7 mg/dL (2.4-5.1); Potassium 3.6 mMol/L (3.4-5.1); Sodium 143 mMol/L (136-145); Total Protein 5.3 gm/dL (5.7-8.2); eGFR > 60 See Note
[2025-07-08 08:00] VITALS: BP 129/62; PULSE 68; RESP 18; TEMP 36.3; O2SAT 94
--- NOTE | 2025-07-08 08:20 | PC.SS ---
Patient Chica Piña is a 75 Year old female admitted for UTI. SS met with patient at bedside to discuss discharge plan and verify demographic information. Patient appeared to be alert and oriented to time, place and situation. Patient reports she lives at home with her . Patient's , Justin Piña is her surrogate decision maker, [phone]. Patient reports She does not utilize any source of DME to assist with ambulation. Patient is able to complete all ADL's independently. [facility] Patient's PCP is Sheela Frank. At time of discharge patient's will provide transportation. Discharge plan: Home Next of kin: , Justin Piña PCP: Sheela Frank
[2025-07-08] MEDS: TAMSULOSIN HCL 0.4 MG CAPSULE PO (09:32)
--- NOTE | 2025-07-08 10:03 | ESDS_ITS ---
<Statement entered by Jhonny Silva MD - 07/17/25 14:39> I reviewed above note and agree with findings and plans. I have also personally examined the patient with medicine team and went over assessment and plan with medical team including internet marketing manager and resident physician. <Statement entered by Poornima Hutson MD - 07/08/25 18:24> Note reviewed, I agree with most of its contents and agree with the patient's care as documented by Dr. Ortega. The patient's management plan was discussed with my attending physician Dr. Silva. Poornima Hutson, PGY-2 Planned Discharge Date 07/08/25 DS: Providers Provider Date of admission: 07/06/25 20:53 Primary care physician: Physician No Primary/Family Admitting Provider: Katerina Thomas MD Attending Provider on Admission: Jhonny Silva MD Consults: 07/06/25 18:41 Consult to Urology Stat Comment: Renal Stone Consulting Provider: Fredy Lawson Attending Provider on DC: Jhonny Silva MD Discharging Provider: Jhonny Silva MD DS: Diagnosis Problem List Completed Was Problem List Reviewed/Reconciled?: Yes Hospital Course Hospital Course Hospital course: Hospital Course Ms Piña is a 75 year-old woman with past medical history of migraine, splenic aneurysm, nephrolithiasis, s/p cholecystectomy (2020) who presented to the ED on 07/06/2025 with chief complaint of abdominal pain, nausea and vomiting, found to have L renal stone, and mild hydronephrosis. Admitted for complicated UTI management.Urology was consulted who discussed surgical interventions vs concervative managment. She opted for conservative management with tamsulosin, antibiotics, and pain managment. pt recieved IV antibiotics and had marked improvements in her symptoms. she was noted to have uterine fundal mass on imaging, recommend outpatient work up. she was stable and medically cleared for discharge. Discharge instructions Continue taking antibiotic as prescribed for your UTI. Take pain medication and antinausea medication as needed. Start taking tamsulosin as management for kidney stones. Resume previous medications. Follow up with PCP in 1-2 weeks. 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 Hutson and Dr. Shira Ortega MD PGY1 Time Spent with Patient Time attestation: Total time spent providing and/or coordinating discharge services: Time spent: Greater than 30 minutes Exam Vital Signs Temp Pulse Resp BP Pulse Ox O2 Del Method FiO2 97.4 F 68 18 129/62 94 L Room Air 1 07/08/25 08:00 07/08/25 08:00 07/08/25 08:00 07/08/25 08:00 07/08/25 08:00 07/08/25 08:00 07/08/25 08:00 Narrative Exam General: Patient appears younger than stated age, no acute distress, sitting comfortably in bed. HEENT: Mucosa moist. Pupils are equal and reactive to light bilaterally. Good dentition, no oropharyngeal lesions. Cardiovascular: Normal S1 and S2. Regular rate and rhythm. No murmur appreciated Respiratory: Clear to auscultation bilaterally without wheezes or crackles. Abdomen: Soft, nontender, not distended, L flank tenderness much improved,non tender on exam. Skin: Dry, no rashes or bruising, multiple Musculoskeletal: No gross injuries. Able to move all 4 extremities. Non edematous lower extremities. Neuro: Alert and oriented x3. No focal neuro deficits. Psych: Normal affect and mood Discharge Plan Plan Patient Disposition: HOME (Self Care) Patient condition on transfer: Stable Prescriptions/Referrals Prescriptions/Med Rec: New tamsulosin 0.4 mg Capsule 0.4 mg PO QDAY 30 Days Qty: 30 0RF cephalexin 500 mg capsule 500 mg PO BID 3 Days Qty: 6 0RF ondansetron 4 mg tablet,disintegrating 4 mg PO Q8H PRN (Reason: nausea and vomiting) 7 Days Qty: 21 0RF Continued omeprazole 40 MG capsule,delayed release(DR/EC) 40 mg PO QDAY Qty: 0 montelukast [Singulair] 10 MG tablet 10 mg PO HS Qty: 0 sumatriptan succinate 100 mg Tablet 100 mg PO Q2H PRN (Reason: Migraine) Rx Instructions: do not exceed 2 doses per 24 hrs ezetimibe 10 mg Tablet 10 mg PO QDAY Referrals: No Primary/Family,Physician [Primary Care Provider] Patient/Caregiver Discharge Instructions Other Discharge Activity Instructions:: Continue taking antibiotic as prescribed for your UTI. Take pain medication and antinausea medication as needed. Start taking tamsulosin as management for kidney stones. Resume previous medications. Follow up with PCP in 1-2 weeks. Print Language: Taiwanese Stand Alone Forms: [facility] Award Info., Patient Portal Info Letter, Work/Release Restrictions Discharge Order Discharge Orders: Discharge (Routine); Ordered 07/08/25 Ordered By: Poornima Hutson Quality Discharge Quality Measures VTE prophylaxis
[2025-07-08 12:00] VITALS: BP 154/74; PULSE 71; RESP 18; TEMP 36.4; O2SAT 95
== END 2025-07-08 14:43 | disposition home or self-care (01) | DRG 690 ==
LOC: SERX 18:13 → SERHOLD 21:44 → S3NX 21:52
PROVIDERS: Nurse Practitioner Family; Admitting Provider Student in an Organized Health Care Education/Training Program; Emergency Provider Emergency Medicine; Visit Provider Internal Medicine
DX: N13.6 Pyonephrosis (principal); M80.08XA Age-related osteoporosis with current pathological fracture, vertebra(e), initial encounter for fracture; G43.909 Migraine, unspecified, not intractable, without status migrainosus; D17.71 Benign lipomatous neoplasm of kidney; N28.1 Cyst of kidney, acquired; I72.8 Aneurysm of other specified arteries; I72.2 Aneurysm of renal artery; E78.5 Hyperlipidemia, unspecified; N85.4 Malposition of uterus; J30.9 Allergic rhinitis, unspecified; Z90.49 Acquired absence of other specified parts of digestive tract; Z88.0 Allergy status to penicillin; Z87.442 Personal history of urinary calculi; Z88.5 Allergy status to narcotic agent
CPT/HCPCS: 36415; 71045; 74177; 80053; 81001; 82150; 83735; 84100; 85025; 87040; 87086; 87400; 87811; 96365; 99284; A4649; J0696; J7030; Q0162; Q9967; A9270

== ENCOUNTER → 2025-08-21 | Outpatient (CLI) | payer BC, MEDICARE, OTHER, SELFPAY ==
--- NOTE | 2025-08-21 14:30 | XR_ITS ---
Examination: Retroperitoneal ultrasound, complete Technique: Multiple high resolution grayscale images of the retroperitoneum obtained, including kidneys and bladder. Exam date and time: 08/21/2025, 2:08 p.m. INDICATION: Left flank pain for 2 months. Minimal left hydronephrosis and 3 mm proximal left ureteral calculus as well as right renal cyst on prior CT. COMPARISON: Renal ultrasound 05/12/2022 CT abdomen pelvis 07/06/2025. FINDINGS: Right renal length is measured at 10.5 cm. Left renal length is measured at 11.4 cm. Bilateral renal cortical echogenicity and thickness appear to be within normal limits for age. 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 Patient has bilateral renal parapelvic cysts, more pronounced on the right side as correlated with prior CT. Additionally, there is a simple anechoic cortical cyst at the inferior pole of the right kidney that measures 2 cm in size. No evidence for solid renal mass, calculi, hydronephrosis, or perinephric fluid collection on either side. The urinary bladder is partially distended, with volume of approximately 16.4 cc at time of imaging. No evidence for bladder mass or calculus. The ureteral jets were not visualized at time of imaging. IMPRESSION: Negative renal ultrasound for calculi, hydronephrosis or solid masses. Previously visualized left-sided renal hydronephrosis is no longer present. Parapelvic and right renal cortical cysts.
== END | disposition home or self-care (01) ==
LOC: CDIM 14:00
PROVIDERS: PCP Physician Assistant; Referring Provider Nurse Practitioner Family; Visit Provider Nurse Practitioner Family
DX: N28.1 Cyst of kidney, acquired (principal)
CPT/HCPCS: 76770

== ENCOUNTER → 2025-08-24 | Outpatient (CLI) | payer BC, MEDICARE, OTHER, SELFPAY ==
[2025-08-24 08:31] LABS: Misc Send Out* See Sep Rpt
== END | disposition home or self-care (01) ==
LOC: SLDO 07:52
PROVIDERS: Referring Provider Nurse Practitioner Family; Visit Provider Nurse Practitioner Family
DX: N20.0 Calculus of kidney (principal)
CPT/HCPCS: 82340; 82507; 82570; 83735; 83945; 83986; 84105; 84133; 84300; 84392; 84560